=== PATIENT | female | born 1955 | race Caucasian/White ===

== ENCOUNTER → 2016-07-01 | Outpatient (CLI) | payer OTHER ==
[2015-12-09 12:47] VITALS: BP 133/71
[2016-07-01 12:46] LABS: BASOPHILS % (AUTO) 0.6 % (0.2-1.0); EOSINOPHILS # (AUTO) 0.2 x10^3/uL (0.0-0.2); EOSINOPHILS % (AUTO) 3.7 % (0.9-2.9); HEMOGLOBIN 12.3 g/dL (12.0-16.0); LYMPHOCYTES # (AUTO) 1.2 X10^3/uL (1.3-2.9); LYMPHOCYTES % (AUTO) 23.7 % (21.0-51.0); MEAN CORPUSCULAR HEMOGLOBIN 29.8 pg (27.0-34.0); MEAN CORPUSCULAR HGB CONC 34.1 g/dL (33.0-35.0); MEAN CORPUSCULAR VOLUME 87.4 fL (80.0-100.0); MEAN PLATELET VOLUME 9.5 fL (7.4-11.0); MONOCYTES # (AUTO) 0.4 x10^3/uL (0.3-0.8); MONOCYTES % (AUTO) 7.6 % (0.0-13.0); NEUTROPHILS # (AUTO) 3.1 x10^3/uL (2.2-4.8); NEUTROPHILS % (AUTO) 64.4 % (42.0-75.0); PLATELET COUNT 183 X10^3/uL (150.0-450.0); RED BLOOD COUNT 4.11 X10^6/uL (3.5-5.4); RED CELL DISTRIBUTION WIDTH 13.7 % (11.6-16.5); WHITE BLOOD COUNT 4.9 X10^3/uL (3.6-10.0)
[2016-07-01 13:23] LABS: ERYTHROCYTE SEDIMENTATION RATE 13 MM/HOUR (0-20)
[2016-07-01 16:38] LABS: ALANINE AMINOTRANSFERASE 17 Units/L (12-78); ALBUMIN 3.3 g/dL (3.4-5.0); ALKALINE PHOSPHATASE 77 Units/L (46-116); ASPARTATE AMINO TRANSFERASE 18 Units/L (15-37); BLOOD UREA NITROGEN 9 mg/dL (7-18); CALCIUM 8.2 mg/dL (8.5-10.1); CARBON DIOXIDE 27.6 mmol/L (21-32); CHLORIDE 110 mmol/L (98-107); COR CA(FOR HYPOALB) 8.8 mg/dL (8.5-10.1); FREE T4 (FREE THYROXINE) 0.92 ng/dL (0.76-1.46); GLUCOSE 90 mg/dL (65-99); SODIUM 145 mmol/L (136-145); TOTAL PROTEIN 6.9 g/dL (6.4-8.2); TSH (3RD GENERATION) 1.367 uIU/mL (0.358-3.74); eGFR BLACK RACES > 60 (>60); eGFR NON BLACK RACES > 60 (>60)
== END ==
LOC: LAB 12:01
PROVIDERS: ATTEND Nuclear Medicine Nuclear Cardiology
DX: M81.0 Age-related osteoporosis without current pathological fracture (principal); R53.83 Other fatigue; M79.7 Fibromyalgia; I95.89 Other hypotension; I50.32 Chronic diastolic (congestive) heart failure; M05.79 Rheumatoid arthritis with rheumatoid factor of multiple sites without organ or systems involvement; M17.0 Bilateral primary osteoarthritis of knee; M25.561 Pain in right knee; M25.562 Pain in left knee; M70.52 Other bursitis of knee, left knee
CPT/HCPCS: 36415; 80053; 82306; 83735; 84439; 84443; 85025; 85652; 86140

== ENCOUNTER → 2017-01-13 | Outpatient (CLI) | payer OTHER ==
[2015-12-09 12:47] VITALS: BP 133/71
== END ==
LOC: LAB 13:28
DX: E56.8 Deficiency of other vitamins (principal); G47.8 Other sleep disorders; M05.79 Rheumatoid arthritis with rheumatoid factor of multiple sites without organ or systems involvement; M06.39 Rheumatoid nodule, multiple sites; M17.0 Bilateral primary osteoarthritis of knee
CPT/HCPCS: 86480

== ENCOUNTER → 2017-01-22 | Outpatient (CLI) | payer OTHER ==
[2015-12-09 12:47] VITALS: BP 133/71
--- NOTE | 2017-01-28 16:33 | MG ---
Examination: Bilateral screening mammogram. Clinical history: Routine screening. Technique: Digital CC and MLO views of both breasts were obtained. Computer aided detection analysis was performed and used during the interpretation. Comparison: 10/07/2007. Findings: The breasts are composed of scattered fibroglandular densities. A skin mole is present overlying the left breast. No suspicious mass, area of architectural distortion or suspicious cluster of microcalcifications is noted. Impression: 1. No mammographic evidence of malignancy. BI-RADS category 1-negative. Recommend routine annual screening mammogram. Diagnostic CAD was utilized and reviewed. * 0 (ZERO) - ASSESSMENT INCOMPLETE; ADDITIONAL IMAGING IS NEEDED. * 0C - ASSESSMENT INCOMPLETE, NEEDS ADDITIONAL IMAGING EVALUATION AND/OR PRIOR MAMMOGRAMS FOR COMPARI SON. * 1/1 (ONE) - NEGATIVE. * 2/II (TWO) - BENIGN FINDINGS. * 3/III (THREE) - PROBABLY BENIGN FINDING; SHORT INTERVAL FOLLOW-UP SUGGESTED. * 4/IV (FOUR) - SUSPICIOUS ABNORMALITY; BIOPSY SHOULD BE CONSIDERED. * 5/V - HIGHLY SUSPICIOUS OF MALIGNANCY; BIOPSY SHOULD BE PERFORMED. * 6/IV - KNOWN BIOPSY PROVEN MALIGNANCY-APPROPRIATE ACTION SHOULD BE TAKEN. A NEGATIVE X-RAY REPORT SHOULD NOT DELAY BIOPSY IF A DOMINANT OR CLINICALLY SUSPICIOUS MASS IS PRESENT; 4 TO 8 PERCENT OF CANCERS ARE NOT IDENTIFIED BY X-RAY. A NEGATIVE REPORT MAY REINFORCE THE CLINICAL IMPRESSION. ADENOSIS AND DENSE BREASTS MAY OBSCURE AN UNDERLYING NEOPLASM. Reported By:
== END ==
LOC: RAD 10:39
PROVIDERS: ATTEND Nurse Practitioner Family
DX: Z00.00 Encounter for general adult medical examination without abnormal findings (principal); Z12.31 Encounter for screening mammogram for malignant neoplasm of breast
CPT/HCPCS: 77067

== ENCOUNTER 2017-07-26 18:42 | Emergency (ER) | payer OTHER ==
[2017-07-26 18:49] VITALS: BP 123/69; BMI 28.3
--- NOTE | 2017-07-26 19:34 | DR.GENAD ---
HPI - PCP Primary Care Physician: ZELDA - HPI Comment HPI Comment: PATIENT SAID PAIN STARTED MILD BUT PROGRESS TO SEVERE LEVEL. THOUGH HER PURSE HAD SOMETHING TO DO WITH PAIN. NO TRAUMA. PAIN TODAY IS SEVERE AND NOT RESPONDING TO HOME PAIN MED. HAVE RA. HISTORY CAD WITH PREVIOUS STENT PLACEMENT. - Complaint/Symptoms Chief Complaint Doctors Comments: LEFT LOWER CHEST PAIN TIMES 2 WEEKS. WORSE TODAY. Chief Complaint:: LEFT SIDE RIB PAIN Self Treatment fo Chief Complaint: TRAMADOL - Nurses notes reviewed Nurses Notes Review: Yes - Source History Provided: Patient - Mode of Arrival Mode of Arrival: Ambulatory - Timing Onset of Chief Complaint: 07/12/17 Came on: Suddenly - Duration Duration: Constant Duration: Days - Severity Severity: Moderate PMH - PMH Past Medical History: Yes Past Medical History: Arthritis, Coronary Artery Disease, Dyslipidemia, Hypertension, MA Past Surgical History: Yes Surgical History: Appendectomy, Hysterectomy, Ortho Surgery - Family History History of Family Medical Conditions: Yes Family Medical History: Diabetes Mellitus, Cancer, Hypertension - Social History Does patient currently use any type of tobacco product: No Have you used tobacco products in the last 12 months: No Type of Tobacco Use: None Does any household member use tobacco: No Alcohol Use: None Do you use any recreational Drugs:: No Lives With: Family Lives Where: Home - infectious screening In the last 2 months have you had wt loss of >10#?: NO Have you had fever, night sweats or hemotysis?: No Have you traveled outside the country in the last 6 months?: No Isolation: Standard ROS - Review of Systems Constitutional: No Symptoms Reported Eyes: No Symptoms Reported ENTM: No Symptoms Reported Respiratoy: Short of Breath. negative: Productive Cough, Non-Productive Cough, Wheezing, Hemoptysis Cardiovascular: Chest Pain. negative: Edema Gastrointestinal/Abdominal: Abdominal Pain, Nausea. negative: Diarrhea, Vomiting Genitourinary: No Symptoms Reported Neurological: No Symptoms Reported Musculoskeletal: No Symptoms Reported, Chest wall, Rib(s) (LT LOWER CHEST) Integumentary: No Symptoms Reported Hematologic/Lymphatic: No Symptoms Reported Endocrine: No Symptoms Reported All Other Systems: Reviewed and Negative PE - Vital Signs Vitals: Temperature 98.4 F Pulse Rate 100 Respiratory Rate 18 Blood Pressure [Left Arm] 133/71 Blood Pressure 123/69 O2 Sat by Pulse Oximetry 95 - General Limitations: No Limitations General Appearance: Alert - Head Head Exam: Normal Inspection - Eyes Eye exam: Normal Appearance, PERRL, EOMI - ENT ENT Exam: Normal External Ear Exam External Ear Exam: Normal External Inspection TM/Canal Exam: Bilateral Normal Nose Exam: Normal Nose Exam Mouth Exam: Normal Inspection Throat Exam: Normal Inspection - Neck Neck Exam: Trachea Midline - Respiratory Respiratory Exam: Chest Wall Tenderness (LT LOWER CHEST WALL TENDERNESS.) Respiratory Exam: Bilateral Clear to Auscultation - Cardiovascular Cardiovascular Exam: Regular Rate, Normal Rhythm, Normal Heart Sounds - Abdominal Exam Abdominal Exam: Normal Bowel Sounds, Soft. negative: Tenderness - Extremities Extremities Exam: Normal Inspection - Back Back Exam: Normal Inspection - Neurologic Neurological Exam: Alert, Oriented X3 - Psychiatric Psychiatric Exam: Normal Affect, Normal Mood - Skin Skin Exam: Normal Color MDM - Additional Information Additional Information Obtained From: Family - Differential Diagnosis Differential Diagnosis: CHEST PAIN, MA, PUD, PE, PNEUMONIA, PNEUMOTHORAX. Course - Treatment Treatment: SEE ORDERS. IM TORADOL AND NORFLEX IN ED. PAIN IMPROVING. - Education/Counseling Education/Counseling: Patient, Family, Education Educated On: Diagnosis, Needs for Follow Up ROR - Labs Reviewed Laboratory Results Reviewed?: Yes Result Diagrams: 07/26/17 19:44 07/26/17 19:44 Laboratory: WBC 9.5 X10^3/uL (3.6-10.0) 07/26/17 19:44 RBC 4.52 X10^6/uL (3.5-5.4) 07/26/17 19:44 Hgb 13.6 g/dL (12.0-16.0) 07/26/17 19:44 Hct 39.0 % (36.0-47.0) 07/26/17 19:44 MCV 86.2 fL (80.0-100.0) 07/26/17 19:44 MCH 30.1 pg (27.0-34.0) 07/26/17 19:44 MCHC 34.9 g/dL (33.0-35.0) 07/26/17 19:44 RDW 14.3 % (11.6-16.5) 07/26/17 19:44 Plt Count 212 X10^3/uL (150.0-450.0) 07/26/17 19:44 MPV 10.0 fL (7.4-11.0) 07/26/17 19:44 Neut % (Auto) 69.4 % (42.0-75.0) 07/26/17 19:44 Lymph % (Auto) 18.2 % (21.0-51.0) L 07/26/17 19:44 [place] % (Auto) 9.2 % (0.0-13.0) 07/26/17 19:44 Eos % (Auto) 2.4 % (0.9-2.9) 07/26/17 19:44 Baso % (Auto) 0.8 % (0.2-1.0) 07/26/17 19:44 Neut # (Auto) 6.6 x10^3/uL (2.2-4.8) H 07/26/17 19:44 Lymph # (Auto) 1.7 X10^3/uL (1.3-2.9) 07/26/17 19:44 [place] # (Auto) 0.9 x10^3/uL (0.3-0.8) H 07/26/17 19:44 Eos # (Auto) 0.2 x10^3/uL (0.0-0.2) 07/26/17 19:44 Baso # (Auto) 0.1 X10^3/uL (0.0-0.1) 07/26/17 19:44 Absolute Nucleated RBC 0.1 /100WBC 07/26/17 19:44 D-Dimer 732 ng/mL (0-400) H* 07/26/17 19:44 Sodium 136 mmol/L (136-145) 07/26/17 19:44 Corrected Sodium TNP 07/26/17 19:44 Potassium 3.1 mmol/L (3.5-5.1) L 07/26/17 19:44 Chloride 97 mmol/L (98-107) L 07/26/17 19:44 Carbon Dioxide 25.8 mmol/L (21-32) 07/26/17 19:44 BUN 27 mg/dL (7-18) H 07/26/17 19:44 Creatinine 1.06 mg/dL (0.55-1.02) H 07/26/17 19:44 Est GFR (MDRD) Af Amer > 60 (>60) 07/26/17 19:44 Est GFR (MDRD) Non-Af 56 (>60) L 07/26/17 19:44 Glucose 103 mg/dL (65-99) H 07/26/17 19:44 Calcium 9.4 mg/dL (8.5-10.1) 07/26/17 19:44 Corrected Calcium TNP 07/26/17 19:44 Total Bilirubin 1.10 mg/dL (0.2-1.0) H 07/26/17 19:44 AST 27 Units/L (15-37) 07/26/17 19:44 ALT 22 Units/L (12-78) 07/26/17 19:44 Alkaline Phosphatase 79 Units/L (46-116) 07/26/17 19:44 Creatine Kinase 53 Units/L (26-192) 07/26/17 19:44 CK-MB (CK-2) 1.6 ng/mL (0-4.0) 07/26/17 19:44 CK/CKMB % Calc 3.0 % (<4) 07/26/17 19:44 Troponin I 0.02 ng/mL (0-1.5) 07/26/17 19:44 Total Protein 8.2 g/dL (6.4-8.2) 07/26/17 19:44 Albumin 4.1 g/dL (3.4-5.0) 07/26/17 19:44 Globulin 4.1 g/dL (2.5-4.5) 07/26/17 19:44 Albumin/Globulin Ratio 1.0 Ratio (1.1-2.1) L 07/26/17 19:44 - XRAY XRAY Interpreted by: Radiologist XRAY Findings: REPORT DISCUSS WITH PATIENT. - EKG Rhythm: NSR (EKG NOTED) - Diagnosis Discharge Problem: Hypokalemia Chest pain Qualifiers: Chest pain type: precordial pain Qualified Code(s): R07.2 - Precordial pain - Discharge Plan Disposition: 01 HOME, SELF-CARE Condition: Stable - Follow ups/Referrals Follow ups/Referrals: CAESAR NDIAYE [Primary Care Provider] - 07/27/17 - Instructions Instructions: Hypokalemia, Chest Wall Pain, [id number], Chest Pain Observation Additional Instructions: RETURN TO ED IF WORSE.
[2017-07-26] MEDS ORDERED: TORADOL 60 MG VIAL IM ONE (19:35)
[2017-07-26] MEDS ORDERED: NORFLEX INJ IM ONE (19:35)
[2017-07-26] MEDS ORDERED: NORFLEX INJ ONE (19:39)
[2017-07-26] MEDS ORDERED: TORADOL 60 MG VIAL ONE (19:39)
[2017-07-26 20:10] LABS: BLOOD UREA NITROGEN 27 mg/dL (7-18); CALCIUM 9.4 mg/dL (8.5-10.1); CARBON DIOXIDE 25.8 mmol/L (21-32); CHLORIDE 97 mmol/L (98-107); CREATININE 1.06 mg/dL (0.55-1.02); SODIUM 136 mmol/L (136-145); TROPONIN I 0.02 ng/mL (0-1.5); eGFR BLACK RACES > 60 (>60); eGFR NON BLACK RACES 56 (>60)
[2017-07-26 20:15] LABS: ALANINE AMINOTRANSFERASE 22 Units/L (12-78); ALBUMIN 4.1 g/dL (3.4-5.0); ALKALINE PHOSPHATASE 79 Units/L (46-116); ASPARTATE AMINO TRANSFERASE 27 Units/L (15-37); BASOPHILS # (AUTO) 0.1 X10^3/uL (0.0-0.1); BASOPHILS % (AUTO) 0.8 % (0.2-1.0); CREATINE KINASE 53 Units/L (26-192); CREATINE KINASE MB 1.6 ng/mL (0-4.0); EOSINOPHILS # (AUTO) 0.2 x10^3/uL (0.0-0.2); EOSINOPHILS % (AUTO) 2.4 % (0.9-2.9); HEMOGLOBIN 13.6 g/dL (12.0-16.0); LYMPHOCYTES # (AUTO) 1.7 X10^3/uL (1.3-2.9); LYMPHOCYTES % (AUTO) 18.2 % (21.0-51.0); MEAN CORPUSCULAR HEMOGLOBIN 30.1 pg (27.0-34.0); MEAN CORPUSCULAR HGB CONC 34.9 g/dL (33.0-35.0); MEAN CORPUSCULAR VOLUME 86.2 fL (80.0-100.0); MONOCYTES # (AUTO) 0.9 x10^3/uL (0.3-0.8); MONOCYTES % (AUTO) 9.2 % (0.0-13.0); NEUTROPHILS # (AUTO) 6.6 x10^3/uL (2.2-4.8); NEUTROPHILS % (AUTO) 69.4 % (42.0-75.0); PLATELET COUNT 212 X10^3/uL (150.0-450.0); RED BLOOD COUNT 4.52 X10^6/uL (3.5-5.4); RED CELL DISTRIBUTION WIDTH 14.3 % (11.6-16.5); TOTAL PROTEIN 8.2 g/dL (6.4-8.2); WHITE BLOOD COUNT 9.5 X10^3/uL (3.6-10.0)
--- NOTE | 2017-07-26 20:20 | RAD ---
HISTORY: 62-year-old female with chest pain. Study: Frontal view of the chest. Comparison: Chest radiograph 11/27/2015 Findings: The trachea is midline. The cardiac silhouette is stably enlarged with low lung volumes and chronic prominence of the interstitium and perihilar lung markings. The lungs are clear without focal consol idation, effusion or pneumothorax. Soft tissues are unremarkable. Osseous structures are unremarkabl e. IMPRESSION: 1. No acute cardiopulmonary disease. Reported By:
[2017-07-26] MEDS ORDERED: K-LYTE EFFERVESCENT PO ONE (20:32)
[2017-07-26] MEDS ORDERED: K-LYTE EFFERVESCENT ONE (20:39)
[2017-07-26] MEDS ORDERED: NS 100 ML IV 100 ML IV ONE (21:19)
--- NOTE | 2017-07-26 22:54 | CT ---
CT ANGIOGRAPHY OF THE CHEST CLINICAL HISTORY: 62-year-old female with elevated D-dimer. COMPARISON: None. TECHNIQUE: CT angiogram of the chest was performed following the uncomplicated administration of 99 m L Omnipaque 350 intravenous contrast as per routine pulmonary embolus protocol. Coronal and Sagittal reformats provided. MIP reformats are submitted for review. FINDINGS: No pulmonary embolus is seen. There is no thoracic aortic dissection. The heart is normal in size and there is no pericardial effusion. There is no axillary or mediastina l lymphadenopathy. Evaluation of the lung parenchyma demonstrates no pulmonary nodules, masses, or airspace opacities. T he trachea and mainstem bronchi are patent. There is no pleural effusion or pneumothorax. Imaged upper abdomen is unremarkable. The arteriovascular structures are within normal limits. Soft tissues are normal. The osseous structures are intact without fracture or malalignment. IMPRESSION: 1. No pulmonary embolus. Reported By:
== END 2017-07-26 23:05 | disposition home or self-care (01) ==
LOC: ER 19:01
DX: R07.2 Precordial pain (principal); E87.6 Hypokalemia; Z86.79 Personal history of other diseases of the circulatory system; R94.31 Abnormal electrocardiogram [ECG] [EKG]
CPT/HCPCS: 36415; 71045; 71275; 80053; 82550; 82553; 84484; 85025; 85378; 93005; 93010; 96365; 96372; 99283; 99285; A4222; J1885; J2360